=== PATIENT | female | born 1995 | race Caucasian/White ===

== ENCOUNTER → 2016-08-09 | Outpatient (CLI) | payer OTHER ==
[~2016-08-09] MED LIST: AMOXICILLIN500 M1 PO; AMOXICILLIN500 MG PO; ASPIRIN CHILDRE81 MG PO; AVELOX400 MG PO; CETIRIZINE10 MG PO; CLARITIN10 MG PO; DIFLUCAN100 MG PO; FLONASE0.05 MG/AC NS; IBIFON 600600 MG PO; LEVOTHROID0.088 MG PO; METFORMIN500 MG PO; MOTRIN600 MG PO; MOTRIN800 MG PO; MYCELEX TROCHE10 MG MM; OMNICEF300 MG PO; THE MEDICINE S400 IU; ZITHROMAX Z PA250 MG PO
[2016-08-09 11:03] LABS: THYROID STIM HORMONE (HS) 1.98 uIU/ml (0.358-4.75)
[2016-08-09 11:12] LABS: HEMOGLOBIN A1c 5.4 % (4.8-5.6)
== END | disposition home or self-care (01) ==
LOC: LAB 10:10
PROVIDERS: Internal Medicine Endocrinology, Diabetes & Metabolism
DX: E11.9 Type 2 diabetes mellitus without complications (principal); E03.9 Hypothyroidism, unspecified; E55.9 Vitamin D deficiency, unspecified; E78.5 Hyperlipidemia, unspecified

== ENCOUNTER → 2018-01-19 | Outpatient (CLI) | payer OTHER ==
[2018-01-19 12:45] LABS: BUN 16 mg/dl (7-24); CHOLESTEROL 141 mg/dL (<200); CREATININE 0.75 mg/dL (0.55-1.02); HDL CHOLESTEROL 35 mg/dl (40-60); LDL CHOLESTEROL 95 mg/dL (9-159); SGOT/AST 20 IU/L (3-35); SGPT/ALT 29 U/L (12-78); TRIGLYCERIDES 53 mg/dl (<150); VLDL CHOLESTEROL 11 mg/dL (6-40)
[2018-01-19 13:27] LABS: VITAMIN D, 25-HYDROXY 22.8 ng/mL (30-100)
== END | disposition home or self-care (01) ==
LOC: LAB 11:28
PROVIDERS: Internal Medicine Endocrinology, Diabetes & Metabolism
DX: E03.9 Hypothyroidism, unspecified (principal); E55.9 Vitamin D deficiency, unspecified; E78.5 Hyperlipidemia, unspecified; E11.51 Type 2 diabetes mellitus with diabetic peripheral angiopathy without gangrene